=== PATIENT | male | born 1945 | race Hispanic/Latino ===

== ENCOUNTER 2021-06-04 19:00 | Emergency (ER) | payer MEDICARE, OTHER ==
[~2021-06-04] VITALS: Ht 172.7 cm; Wt 96.6 kg
[2021-06-04 19:04] VITALS: BP 158/81
[2021-06-04] MEDS ORDERED: LORAZEPAM 1 MG TABLET ONE (19:31)
[2021-06-04 19:33] LABS: APPEARANCE,URINE Clear (CLEAR); BILIRUBIN,URINE Negative (NEGATIVE); COLOR,URINE Yellow (YELLOW); GLUCOSE, URINE (UA) Negative (NEGATIVE); KETONES,URINE Trace mg/dL (NEGATIVE); LEUKOCYTE ESTERASE ,URINE Negative (NEGATIVE); NITRATE,URINE Negative (NEGATIVE); OCCULT BLOOD,URINE Negative (NEGATIVE); PH,URINE 5.5 (5.0-8.0); PROTEIN,URINE POS 2+ mg/dL (NEGATIVE)
[2021-06-04 19:37] LABS: BASOPHILS % (AUTO) 0.6 % (0.0-5.0); EOSINOPHILS % (AUTO) 2.1 % (0.0-8.0); HEMATOCRIT 29.5 % (42-54); LYMPHOCYTES % (AUTO) 24.1 % (21.0-51.0); MEAN CORPUSCULAR HEMOGLOBIN 29.6 pg (27.0-33.0); MEAN CORPUSCULAR HGB CONC 31.9 g/dL (32.0-36.0); MEAN CORPUSCULAR VOLUME 92.8 fL (79-99); MONOCYTES % (AUTO) 7.3 % (3.0-13.0); NEUTROPHILS % (AUTO) 65.8 % (40.0-77.0); PLATELET COUNT (AUTO) 212 K/uL (130-400); RED BLOOD CELL COUNT(AUTO) 3.18 MIL/uL (4.50-6.20); RED CELL DISTRIBUTION WIDTH 13.4 % (11.0-15.5); WHITE BLOOD COUNT (AUTO) 7.2 K/uL (4.8-10.8)
[2021-06-04 19:44] LABS: BACTERIA,URINE Few /HPF (None Seen); MUCUS,URINE Few LPF (None Seen); SQUAMOUS EPITHELIAL CELL,UR Rare /HPF (0-2); WBC,URINE 0-1 /HPF (0-1)
[2021-06-04 19:54] VITALS: BP 125/83
[2021-06-04 19:58] LABS: CREATININE 1.6 mg/dL (0.5-1.5); POTASSIUM 4.5 mmol/L (3.5-5.1)
[2021-06-04 20:04] LABS: ALBUMIN 3.2 g/dL (3.5-5.0); BILIRUBIN,TOTAL 0.6 mg/dL (0.2-1.0); TOTAL PROTEIN, SERUM 6.6 g/dL (6.0-8.3)
[2021-06-04] MEDS ORDERED: LORAZEPAM 1 MG TABLET PO ONE (20:30)
[2021-06-04 21:54] VITALS: BP 126/81
[2021-06-04 23:47] VITALS: BP 121/78
== END 2021-06-05 00:21 ==
LOC: EDH 19:00
DX: F43.22 Adjustment disorder with anxiety (principal); I95.9 Hypotension, unspecified; E11.9 Type 2 diabetes mellitus without complications; F03.90 Unspecified dementia, unspecified severity, without behavioral disturbance, psychotic disturbance, mood disturbance, and anxiety; Z95.0 Presence of cardiac pacemaker
CPT/HCPCS: 36415; 71045; 80053; 81001; 84484; 85025; 93005

== ENCOUNTER 2021-07-05 22:09 | Inpatient (IN) | payer OTHER ==
[~2021-07-05] VITALS: Ht 172.7 cm; Wt 98.0 kg
[2021-07-05 22:32] VITALS: BP 105/47
[2021-07-05 22:41] LABS: APPEARANCE,URINE Clear (CLEAR); BILIRUBIN,URINE Negative (NEGATIVE); COLOR,URINE Dark Yellow (YELLOW); GLUCOSE, URINE (UA) 250 mg/dL (NEGATIVE); KETONES,URINE Trace mg/dL (NEGATIVE); LEUKOCYTE ESTERASE ,URINE Negative (NEGATIVE); NITRATE,URINE Negative (NEGATIVE); OCCULT BLOOD,URINE Negative (NEGATIVE); PROTEIN,URINE POS 2+ mg/dL (NEGATIVE)
[2021-07-05 22:48] LABS: BASOPHILS % (AUTO) 0.5 % (0.0-5.0); EOSINOPHILS % (AUTO) 1.6 % (0.0-8.0); HEMATOCRIT 27.5 % (42-54); LYMPHOCYTES % (AUTO) 19.7 % (21.0-51.0); MEAN CORPUSCULAR HEMOGLOBIN 27.8 pg (27.0-33.0); MEAN CORPUSCULAR HGB CONC 30.9 g/dL (32.0-36.0); MEAN CORPUSCULAR VOLUME 89.9 fL (79-99); MONOCYTES % (AUTO) 8.1 % (3.0-13.0); NEUTROPHILS % (AUTO) 69.6 % (40.0-77.0); PLATELET COUNT (AUTO) 229 K/uL (130-400); RED BLOOD CELL COUNT(AUTO) 3.06 MIL/uL (4.50-6.20); RED CELL DISTRIBUTION WIDTH 14.7 % (11.0-15.5); WHITE BLOOD COUNT (AUTO) 6.1 K/uL (4.8-10.8)
[2021-07-05 22:50] LABS: BACTERIA,URINE None Seen /HPF (None Seen); RBC,URINE None Seen /HPF (0-1); WBC,URINE None Seen /HPF (0-1); YEAST,URINE BUDDING None Seen /HPF (None Seen)
[2021-07-05 22:51] LABS: MUCUS,URINE Rare LPF (None Seen); SQUAMOUS EPITHELIAL CELL,UR Rare /HPF (0-2)
[2021-07-05 23:03] LABS: CREATININE 2.2 mg/dL (0.5-1.5); POTASSIUM 4.4 mmol/L (3.5-5.1)
[2021-07-05 23:07] LABS: ALBUMIN 2.8 g/dL (3.5-5.0); BILIRUBIN,TOTAL 0.5 mg/dL (0.2-1.0); TOTAL PROTEIN, SERUM 6.6 g/dL (6.0-8.3)
[2021-07-05 23:18] LABS: INR 1.1 (0.85-1.15); PROTHROMBIN TIME 11.9 SEC (9.6-11.6)
[2021-07-05 23:19] LABS: PARTIAL THROMBOPLASTIN TIME 25.5 SEC (26.3-35.5)
[2021-07-05 23:25] LABS: B-TYPE NATRIURETIC PEPTIDE 1420 pg/mL (0-100)
[2021-07-06] MEDS ORDERED: FUROSEMIDE 40MG VIAL IV ONE (00:30)
[2021-07-06] MEDS ORDERED: GUAIFENESIN SUGAR-FREE 100 MG/5 ML UDCUP ONE (00:51)
[2021-07-06] MEDS ORDERED: FUROSEMIDE 40MG VIAL ONE (00:51)
[2021-07-06] MEDS ORDERED: GUAIFENESIN SUGAR-FREE 100 MG/5 ML UDCUP PO ONE (01:00)
[2021-07-06 02:04] VITALS: BP 113/76
[2021-07-06] MEDS ORDERED: TRAZODONE HCL 50 MG TAB PO PRN (02:30)
[2021-07-06] MEDS ORDERED: LORAZEPAM 2 MG/ML 1 ML VIAL ONE (02:45)
[2021-07-06] MEDS ORDERED: LORAZEPAM 2 MG/ML 1 ML VIAL IVP ONE (03:00)
[2021-07-06] MEDS ORDERED: GUAIFENESIN-CODEINE 5 ML SYRUP ONE (03:42)
[2021-07-06] MEDS ORDERED: GUAIFENESIN-CODEINE 5 ML SYRUP PO PRN (04:00)
[2021-07-06 04:30] VITALS: BP 113/76
[2021-07-06] MEDS ORDERED: 0.9%NACL 50ML 50 ML IV ONE (04:52)
[2021-07-06] MEDS ORDERED: ZOSYN 3.375GM+NS 50ML 50 ML IV SCH (05:00)
[2021-07-06 06:11] VITALS: BP 135/82
[2021-07-06 06:19] LABS: CHOLESTEROL 99 mg/dL (<200); HDL CHOLESTEROL 44 mg/dL (29-71); LDL DIRECT 45 mg/dL (0-99); TRIGLYCERIDES 64 mg/dL (30-200)
[2021-07-06 06:28] LABS: TROPONIN I 0.08 ng/mL (0.00-0.06)
[2021-07-06] MEDS ORDERED: INSULIN HUMULIN R 100 UNIT/ML 3ML SQ SCH (07:30)
[2021-07-06] MEDS ORDERED: CLOPIDOGREL 75MG TAB PO SCH (09:00)
[2021-07-06] MEDS ORDERED: CARVEDILOL 6.25 MG TABLET PO SCH (09:00)
[2021-07-06] MEDS ORDERED: BUSPIRONE HCL 5 MG TABLET PO SCH (09:00)
[2021-07-06] MEDS ORDERED: HEPARIN 5,000 UNIT VIAL SQ SCH (09:00)
[2021-07-06] MEDS ORDERED: FUROSEMIDE 40MG VIAL IVP SCH (09:00)
[2021-07-06] MEDS ORDERED: FAMOTIDINE 20MG TAB PO SCH (09:00)
[2021-07-06] MEDS ORDERED: SUB PER P&T FOR ASTHMA OR COPD RECOMMENDATION IH SCH (09:00)
[2021-07-06] MEDS ORDERED: LISINOPRIL 10 MG TABLET PO SCH (09:00)
[2021-07-06] MEDS ORDERED: ISOSORBIDE MONO 30MG SR TAB PO SCH (09:00)
[2021-07-06] MEDS ORDERED: HYDRALAZINE 25MG TABLET PO SCH (09:00)
[2021-07-06] MEDS ORDERED: ATORVASTATIN 40 MG TABLET PO SCH (21:00)
[2021-07-06] MEDS ORDERED: INSULIN GLARGINE 100 UNITS/ML 10 ML VIAL SQ SCH (21:00)
[2021-07-06] MEDS ORDERED: MIRTAZAPINE 15 MG TABLET PO SCH (21:00)
== END 2021-07-06 08:10 | disposition left against medical advice (07) | DRG 292 ==
LOC: EDH 22:35 → EDHIP 07-06 02:38
PROVIDERS: ADMIT Internal Medicine; ATTEND Internal Medicine
DX: I13.0 Hypertensive heart and chronic kidney disease with heart failure and stage 1 through stage 4 chronic kidney disease, or unspecified chronic kidney disease (principal); L03.115 Cellulitis of right lower limb; N17.9 Acute kidney failure, unspecified; K21.9 Gastro-esophageal reflux disease without esophagitis; F32.9 Major depressive disorder, single episode, unspecified; I50.9 Heart failure, unspecified; J44.9 Chronic obstructive pulmonary disease, unspecified; F03.90 Unspecified dementia, unspecified severity, without behavioral disturbance, psychotic disturbance, mood disturbance, and anxiety; E78.5 Hyperlipidemia, unspecified; N40.0 Benign prostatic hyperplasia without lower urinary tract symptoms; E11.621 Type 2 diabetes mellitus with foot ulcer; N18.9 Chronic kidney disease, unspecified; E11.22 Type 2 diabetes mellitus with diabetic chronic kidney disease; L97.519 Non-pressure chronic ulcer of other part of right foot with unspecified severity; Z20.822 Contact with and (suspected) exposure to COVID-19; Z87.891 Personal history of nicotine dependence; Z95.810 Presence of automatic (implantable) cardiac defibrillator
CPT/HCPCS: 36415; 71045; 73620; 80053; 80061; 81001; 82550; 83036; 83874; 83880; 84484; 85025; 85378; 85610; 85730; 87635; 93005; 93970; C9803; G0378; J1940; J2060; J2543

== ENCOUNTER 2021-07-19 22:19 | Inpatient (IN) | payer OTHER ==
[~2021-07-19] VITALS: Ht 172.7 cm; Wt 103.4 kg
[2021-07-19 22:43] VITALS: BP 104/59
[2021-07-19 23:24] LABS: BASOPHILS % (AUTO) 0.7 % (0.0-5.0); EOSINOPHILS % (AUTO) 5.1 % (0.0-8.0); HEMATOCRIT 28.8 % (42-54); LYMPHOCYTES % (AUTO) 16.4 % (21.0-51.0); MEAN CORPUSCULAR HEMOGLOBIN 26.4 pg (27.0-33.0); MEAN CORPUSCULAR HGB CONC 30.6 g/dL (32.0-36.0); MEAN CORPUSCULAR VOLUME 86.5 fL (79-99); MONOCYTES % (AUTO) 9.2 % (3.0-13.0); NEUTROPHILS % (AUTO) 68.3 % (40.0-77.0); PLATELET COUNT (AUTO) 252 K/uL (130-400); RED BLOOD CELL COUNT(AUTO) 3.33 MIL/uL (4.50-6.20); RED CELL DISTRIBUTION WIDTH 15.2 % (11.0-15.5); WHITE BLOOD COUNT (AUTO) 6.9 K/uL (4.8-10.8)
[2021-07-19 23:25] LABS: APPEARANCE,URINE Clear (CLEAR); BILIRUBIN,URINE Negative (NEGATIVE); COLOR,URINE Yellow (YELLOW); GLUCOSE, URINE (UA) Negative (NEGATIVE); KETONES,URINE Negative (NEGATIVE); LEUKOCYTE ESTERASE ,URINE Negative (NEGATIVE); NITRATE,URINE Negative (NEGATIVE); OCCULT BLOOD,URINE Negative (NEGATIVE); PROTEIN,URINE Negative (NEGATIVE)
[2021-07-19] MEDS ORDERED: CEFTRIAXONE 1G VIAL IVP ONE (23:30)
[2021-07-19 23:33] LABS: INR 1.12 (0.85-1.15); PROTHROMBIN TIME 12.1 SEC (9.6-11.6)
[2021-07-19 23:40] LABS: ALBUMIN 2.6 g/dL (3.5-5.0); BILIRUBIN,TOTAL 0.4 mg/dL (0.2-1.0); CREATININE 2.8 mg/dL (0.5-1.5); TOTAL PROTEIN, SERUM 6.2 g/dL (6.0-8.3)
[2021-07-19 23:43] LABS: B-TYPE NATRIURETIC PEPTIDE 1450 pg/mL (0-100)
[2021-07-20 00:21] VITALS: BP 125/74
[2021-07-20] MEDS ORDERED: ALPRAZOLAM 0.25 MG TABLET ONE (00:42)
[2021-07-20] MEDS ORDERED: ALPRAZOLAM 0.25 MG TABLET PO ONE (01:00)
[2021-07-20] MEDS ORDERED: FUROSEMIDE 40MG VIAL IV ONE (01:00)
[2021-07-20] MEDS ORDERED: ALBUTEROL 0.083% 2.5 MG/3 ML INH IH ONE (01:00)
[2021-07-20] MEDS ORDERED: INSULIN HUMULIN R 100 UNIT/ML 3ML SQ SCH ×4 (01:30→11:30)
[2021-07-20] MEDS ORDERED: DEXTROSE 50%-WATER 50 ML DISP.SYRIN IV PRN (01:30)
[2021-07-20] MEDS ORDERED: ONDANSETRON 4MG INJ IV PRN (01:30)
[2021-07-20] MEDS ORDERED: NITROGLYCERIN 0.4 MG SL TAB SL PRN (01:30)
[2021-07-20] MEDS ORDERED: GLUCAGON 1MG KIT 1 MG ML IM PRN (01:30)
[2021-07-20] MEDS ORDERED: SOLU-MEDROL 125MG VIAL IVP ONE (01:30)
[2021-07-20] MEDS ORDERED: ACETAMINOPHEN 325 MG TAB PO PRN ×2 (01:30)
[2021-07-20] MEDS ORDERED: ALBUTEROL INHALER 90MCG/INH IH PRN (01:30)
[2021-07-20] MEDS ORDERED: LEVOFLOXACIN 500 MG/D5W 100 ML 100 ML IV SCH (02:00)
[2021-07-20 02:04] LABS: CRP QUANTITATIVE 39.5 mg/L (0.00-9.0)
[2021-07-20 02:08] LABS: CHOLESTEROL 74 mg/dL (<200); HDL CHOLESTEROL 31 mg/dL (29-71); LDL DIRECT 36 mg/dL (0-99); TRIGLYCERIDES 81 mg/dL (30-200)
[2021-07-20 02:39] LABS: % IRON SATURATION 8.3 % (30-44)
[2021-07-20] MEDS ORDERED: CALCIUM GLUC 1GM VIAL IV ONE ×2 (03:06→03:15)
[2021-07-20] MEDS: CALCIUM GLUC IV SCH ×2 (03:19→03:23)
[2021-07-20] MEDS: [UNRECOGNIZED DRUG - OTHER] IV SCH ×2 (03:19→03:23)
[2021-07-20 04:55] LABS: AMPHET/METH SCREEN,URINE NEGATIVE (NEGATIVE); BARBITURATE SCREEN, URINE NEGATIVE (NEGATIVE); BENZODIAZEPINES SCREEN,URINE NEGATIVE (NEGATIVE); CANNABINOID SCREEN,URINE NEGATIVE (NEGATIVE); COCAINE SCREEN,URINE POSITIVE (NEGATIVE); OPIATE SCREEN,URINE NEGATIVE (NEGATIVE); PHENCYCLIDINE SCREEN,URINE NEGATIVE (NEGATIVE)
[2021-07-20 06:03] LABS: HEMOGLOBIN A1C 8.4 % (4.0-6.0)
[2021-07-20 07:30] VITALS: BP 139/81
[2021-07-20] MEDS ORDERED: FUROSEMIDE 40MG VIAL IV SCH (08:00)
[2021-07-20] MEDS ORDERED: FAMOTIDINE 20MG TAB PO SCH (09:00)
[2021-07-20] MEDS ORDERED: HEPARIN 5,000 UNIT VIAL SQ SCH (09:00)
[2021-07-20] MEDS ORDERED: SOLU-MEDROL 40MG VIAL IVP SCH (10:00)
[2021-07-20] MEDS ORDERED: 0.9%NACL 1000ML 1,000 ML IV SCH (11:00)
[2021-07-20] MEDS ORDERED: BUMETANIDE 2.5MG/10ML VIAL IV SCH (11:00)
[2021-07-20] MEDS ORDERED: TRAZ-185 PO (12:00)
[2021-07-20] MEDS ORDERED: ATOR40TA69 PO (12:00)
[2021-07-20] MEDS ORDERED: IPRA3AMP24 IH (12:00)
[2021-07-20] MEDS ORDERED: HYDR-4153 PO (12:00)
[2021-07-20] MEDS ORDERED: CARV6.25 PO (12:00)
[2021-07-20] MEDS ORDERED: BUSP15TA3 PO (12:00)
[2021-07-20] MEDS ORDERED: FOLI1 PO (12:00)
[2021-07-20] MEDS ORDERED: THIA100T78 PO (12:00)
[2021-07-20] MEDS ORDERED: TAMS-1 PO (12:00)
[2021-07-20] MEDS ORDERED: CYAN5POW MC (12:00)
[2021-07-20] MEDS ORDERED: FINA5TAB41 PO (12:00)
[2021-07-20] MEDS ORDERED: CHOL1CRY2 MC (12:00)
[2021-07-20] MEDS ORDERED: POTA20TA82 PO (12:00)
[2021-07-20] MEDS ORDERED: OMEP40CA21 PO (12:00)
[2021-07-20] MEDS ORDERED: INSLAN SQ (12:00)
[2021-07-20] MEDS ORDERED: ISOS30TA92 PO (12:00)
[2021-07-20] MEDS ORDERED: CLOP75TA14 PO (12:00)
[2021-07-20] MEDS ORDERED: MIRT-72 PO (12:00)
[2021-07-20] MEDS ORDERED: SYMB8060 IH (12:00)
[2021-07-20] MEDS ORDERED: INSULIN GLARGINE 100 UNITS/ML 10 ML VIAL SQ SCH (21:00)
== END 2021-07-20 11:13 | disposition left against medical advice (07) | DRG 683 ==
LOC: EDH 22:19 → EDHIP 07-20 01:21
PROVIDERS: ADMIT Internal Medicine; ATTEND Internal Medicine
DX: N17.9 Acute kidney failure, unspecified (principal); I13.0 Hypertensive heart and chronic kidney disease with heart failure and stage 1 through stage 4 chronic kidney disease, or unspecified chronic kidney disease; M62.82 Rhabdomyolysis; J44.1 Chronic obstructive pulmonary disease with (acute) exacerbation; D50.9 Iron deficiency anemia, unspecified; K21.9 Gastro-esophageal reflux disease without esophagitis; F32.9 Major depressive disorder, single episode, unspecified; N18.30 Chronic kidney disease, stage 3 unspecified; I50.9 Heart failure, unspecified; E11.22 Type 2 diabetes mellitus with diabetic chronic kidney disease; Z20.822 Contact with and (suspected) exposure to COVID-19; E78.5 Hyperlipidemia, unspecified; N40.0 Benign prostatic hyperplasia without lower urinary tract symptoms; E66.9 Obesity, unspecified; E83.51 Hypocalcemia; E11.65 Type 2 diabetes mellitus with hyperglycemia; Z68.34 Body mass index [BMI] 34.0-34.9, adult; Z79.4 Long term (current) use of insulin; Z87.891 Personal history of nicotine dependence; Z95.810 Presence of automatic (implantable) cardiac defibrillator
CPT/HCPCS: 36415; 71045; 80053; 80061; 80305; 81003; 82330; 82550; 82728; 82948; 83036; 83540; 83550; 83605; 83874; 83880; 84145; 84484; 85025; 85610; 86140; 87040; 87635; 87641; 93005; 94640; C9803; G0378; J0610; J0696; J1644; J1815; J1940; J1956; J2930

== ENCOUNTER → 2022-05-13 | Outpatient (CLI) | payer OTHER ==
[~2022-05-13] MED LIST: ATOR40TA69 PO; BUSP15TA3 PO; CARV6.25 PO; CHOL1CRY2 MC; CLOP75TA14 PO; CYAN5POW MC; FINA5TAB41 PO; FOLI1 PO; HYDR-4153 PO; INSLAN SQ; IPRA3AMP24 IH; ISOS30TA92 PO; LIDOCAINE HCL 4% LTA SOL 4 ML VIAL TP ONE; MIRT-72 PO; OMEP40CA21 PO; POTA-202 PO; SYMB8060 IH; TAMS-1 PO; THIA100T78 PO; TRAZ-185 PO
== END | disposition home or self-care (01) ==
LOC: WHH 08:57
PROVIDERS: ATTEND Family Medicine
DX: S81.801A Unspecified open wound, right lower leg, initial encounter (principal); S51.001A Unspecified open wound of right elbow, initial encounter; S51.002A Unspecified open wound of left elbow, initial encounter; L89.312 Pressure ulcer of right buttock, stage 2; E11.22 Type 2 diabetes mellitus with diabetic chronic kidney disease; I13.0 Hypertensive heart and chronic kidney disease with heart failure and stage 1 through stage 4 chronic kidney disease, or unspecified chronic kidney disease; N18.30 Chronic kidney disease, stage 3 unspecified; I50.9 Heart failure, unspecified; E78.5 Hyperlipidemia, unspecified; N40.0 Benign prostatic hyperplasia without lower urinary tract symptoms; J44.9 Chronic obstructive pulmonary disease, unspecified; I25.10 Atherosclerotic heart disease of native coronary artery without angina pectoris; K21.9 Gastro-esophageal reflux disease without esophagitis; F41.0 Panic disorder [episodic paroxysmal anxiety]; F32.9 Major depressive disorder, single episode, unspecified; F03.90 Unspecified dementia, unspecified severity, without behavioral disturbance, psychotic disturbance, mood disturbance, and anxiety; E66.9 Obesity, unspecified; Z68.29 Body mass index [BMI] 29.0-29.9, adult; Z90.49 Acquired absence of other specified parts of digestive tract; Z87.891 Personal history of nicotine dependence; Z95.810 Presence of automatic (implantable) cardiac defibrillator; Z79.4 Long term (current) use of insulin; X58.XXXA Exposure to other specified factors, initial encounter; Y93.89 Activity, other specified; Y92.89 Other specified places as the place of occurrence of the external cause; Y99.8 Other external cause status
CPT/HCPCS: 11042; A4450

== ENCOUNTER → 2022-05-20 | Outpatient (CLI) | payer OTHER | END | disposition home or self-care (01) | LOC: MERGE 08:11 → WHH 08:11 → UNMERGE 08:11 | PROVIDERS: ATTEND Family Medicine | DX: S81.801D Unspecified open wound, right lower leg, subsequent encounter (principal); S51.001D Unspecified open wound of right elbow, subsequent encounter; S51.002D Unspecified open wound of left elbow, subsequent encounter; L89.312 Pressure ulcer of right buttock, stage 2; E11.22 Type 2 diabetes mellitus with diabetic chronic kidney disease; I13.0 Hypertensive heart and chronic kidney disease with heart failure and stage 1 through stage 4 chronic kidney disease, or unspecified chronic kidney disease; N18.30 Chronic kidney disease, stage 3 unspecified; I50.9 Heart failure, unspecified; E78.5 Hyperlipidemia, unspecified; N40.0 Benign prostatic hyperplasia without lower urinary tract symptoms; J44.9 Chronic obstructive pulmonary disease, unspecified; I25.10 Atherosclerotic heart disease of native coronary artery without angina pectoris; K21.9 Gastro-esophageal reflux disease without esophagitis; F41.0 Panic disorder [episodic paroxysmal anxiety]; F32.9 Major depressive disorder, single episode, unspecified; F03.90 Unspecified dementia, unspecified severity, without behavioral disturbance, psychotic disturbance, mood disturbance, and anxiety; E66.9 Obesity, unspecified; Z68.29 Body mass index [BMI] 29.0-29.9, adult; Z90.49 Acquired absence of other specified parts of digestive tract; Z87.891 Personal history of nicotine dependence; Z95.810 Presence of automatic (implantable) cardiac defibrillator; Z79.4 Long term (current) use of insulin; W19.XXXD Unspecified fall, subsequent encounter | CPT/HCPCS: 11042 ==

== ENCOUNTER → 2022-05-27 | Outpatient (CLI) | payer OTHER ==
[~2022-05-27] MED LIST changes: +ACET325T51 PO; +ATOR40TA71 PO; +BACL10TA PO; +BALS60OI TP; +BENZ200C53 PO; +BUSP5TAB3 PO; +CARB1DRO40 OP; +CARV3.1262 PO; +CHOL100046 PO; +CYAN500T46 PO; +D-ME118S47 PO; +FAMO-136 PO; +FERR-72 PO; +FLUT1BLS15 IH; +FURO20I IM; +FURO40TA7 PO; +GUAI5SYR4 PO; +HYDR-3422 PO; +INSU100V52 SQ; -LIDOCAINE HCL 4% LTA SOL 4 ML VIAL TP ONE; +LOSA25TA41 PO; +MAGN64TA7 PO; +MIRT7.5T11 PO; +PETR113O TP; +SPIR25TA6 PO; +THIA500T3 PO; +[UNRECOGNIZED DRUG - OTHER] PO
== END | disposition home or self-care (01) ==
LOC: UNMERGE 08:00 → MERGE 08:00 → WHH 08:21
PROVIDERS: ATTEND Family Medicine
DX: Z48.01 Encounter for change or removal of surgical wound dressing (principal); I10 Essential (primary) hypertension; E11.9 Type 2 diabetes mellitus without complications
CPT/HCPCS: 82948

== ENCOUNTER 2022-05-28 17:36 | Inpatient (IN) | payer OTHER ==
[~2022-05-28] VITALS: Ht 172.7 cm; Wt 95.5 kg
[~2022-05-28 17:36] MED LIST changes: -ACET325T51 PO; -ATOR40TA71 PO; -BACL10TA PO; -BALS60OI TP; -BENZ200C53 PO; -BUSP5TAB3 PO; -CARB1DRO40 OP; -CARV3.1262 PO; -CHOL100046 PO; -CYAN500T46 PO; -FAMO-136 PO; -FERR-72 PO; -FLUT1BLS15 IH; -FURO20I IM; -FURO40TA7 PO; -GUAI5SYR4 PO; -HYDR-3422 PO; -INSU100V52 SQ; -LOSA25TA41 PO; -MAGN64TA7 PO; -MIRT7.5T11 PO; -PETR113O TP; -SPIR25TA6 PO; -THIA500T3 PO; -[UNRECOGNIZED DRUG - OTHER] PO
[2022-05-28 18:29] LABS: BASOPHILS % (AUTO) 0.9 % (0.0-5.0); HEMATOCRIT 35.1 % (42-54); LYMPHOCYTES % (AUTO) 8.7 % (21.0-51.0); MEAN CORPUSCULAR HEMOGLOBIN 28.9 pg (27.0-33.0); MEAN CORPUSCULAR HGB CONC 31.3 g/dL (32.0-36.0); MEAN CORPUSCULAR VOLUME 92.1 fL (79-99); MONOCYTES % (AUTO) 8.4 % (3.0-13.0); NEUTROPHILS % (AUTO) 78.7 % (40.0-77.0); PLATELET COUNT (AUTO) 201 K/uL (130-400); RED BLOOD CELL COUNT(AUTO) 3.81 MIL/uL (4.50-6.20); RED CELL DISTRIBUTION WIDTH 15.4 % (11.0-15.5)
[2022-05-28 18:43] LABS: CREATININE 2.2 mg/dL (0.5-1.5); POTASSIUM 4.5 mmol/L (3.5-5.1)
[2022-05-28 18:50] LABS: ALBUMIN 2.3 g/dL (3.5-5.0); CRP QUANTITATIVE 40.3 mg/L (0.00-9.0); TOTAL PROTEIN, SERUM 6.8 g/dL (6.0-8.3)
[2022-05-28 19:19] LABS: APPEARANCE,URINE CLEAR (CLEAR); BILIRUBIN,URINE NEGATIVE (NEGATIVE); COLOR,URINE YELLOW (YELLOW); GLUCOSE, URINE (UA) NEGATIVE (NEGATIVE); KETONES,URINE NEGATIVE (NEGATIVE); LEUKOCYTE ESTERASE ,URINE NEGATIVE (NEGATIVE); NITRATE,URINE NEGATIVE (NEGATIVE); OCCULT BLOOD,URINE NEGATIVE (NEGATIVE); PROTEIN,URINE NEGATIVE (NEGATIVE); UROBILINOGEN,URINE 0.2 mg/dL (0.2-1.0)
[2022-05-28 19:34] LABS: B-TYPE NATRIURETIC PEPTIDE 1120 pg/mL (0-100)
[2022-05-28] MEDS ORDERED: FUROSEMIDE 40MG VIAL IV ONE (20:00)
[2022-05-28] MEDS ORDERED: ACETAMINOPHEN 325 MG TAB PO PRN (20:30)
[2022-05-28] MEDS ORDERED: MAGNESIUM 2GM PREMIX 50ML 50 ML IV PRN (20:30)
[2022-05-28] MEDS ORDERED: VANCOMYCIN PROTOCOL PER PHARMACY IV PRN (20:30)
[2022-05-28] MEDS ORDERED: ONDANSETRON 4MG INJ IV PRN (20:30)
[2022-05-28] MEDS ORDERED: HYDROMORPHONE 0.5 MG SYG (0.5MG/0.5ML) IV PRN (20:30)
[2022-05-28] MEDS ORDERED: POTASSIUM CHLORIDE 10MEQ/100ML 100 ML IV PRN (20:30)
[2022-05-28] MEDS ORDERED: POTASSIUM CHLORIDE 10% ELIXIR 20 MEQ/15 ML UDCUP PO PRN (20:30)
[2022-05-28] MEDS ORDERED: KCL 20 MEQ ERTAB PO PRN (20:30)
[2022-05-28] MEDS ORDERED: LIDOCAINE HCL-MPF 1% 2ML VIAL IV PRN (20:30)
[2022-05-28] MEDS: CEFEPIME HCL 2 GM VIAL IVP SCH (20:30)
[2022-05-28] MEDS: HEPARIN 5,000 UNIT VIAL SQ SCH (21:00)
[2022-05-28] MEDS: INSULIN HUMULIN R 100 UNIT/ML 3ML SQ SCH (21:00)
[2022-05-28] MEDS ORDERED: VANCOMYCIN 1G/250ML KIT 250 ML IV SCH (21:00)
[2022-05-28] MEDS: FUROSEMIDE 40MG VIAL IVP SCH (21:00)
[2022-05-29 00:30] VITALS: BP 114/75
[2022-05-29] MEDS ORDERED: LORAZEPAM 2 MG/ML 1 ML VIAL IVP ONE ×2 (02:00→22:30)
[2022-05-29] MEDS ORDERED: LORAZEPAM 2 MG/ML 1 ML VIAL ONE (02:04)
[2022-05-29 03:30] VITALS: BP 126/75
[2022-05-29 05:42] LABS: BASOPHILS % (AUTO) 0.5 % (0.0-5.0); HEMATOCRIT 36.8 % (42-54); LYMPHOCYTES % (AUTO) 8.7 % (21.0-51.0); MEAN CORPUSCULAR HGB CONC 31.3 g/dL (32.0-36.0); MEAN CORPUSCULAR VOLUME 92.9 fL (79-99); MONOCYTES % (AUTO) 7.7 % (3.0-13.0); NEUTROPHILS % (AUTO) 79.8 % (40.0-77.0); PLATELET COUNT (AUTO) 200 K/uL (130-400); RED BLOOD CELL COUNT(AUTO) 3.96 MIL/uL (4.50-6.20); RED CELL DISTRIBUTION WIDTH 15.5 % (11.0-15.5); WHITE BLOOD COUNT (AUTO) 8.6 K/uL (4.8-10.8)
[2022-05-29 06:04] LABS: B-TYPE NATRIURETIC PEPTIDE 1280 pg/mL (0-100)
[2022-05-29 06:05] LABS: MAGNESIUM 2.1 mg/dL (1.80-2.40); POTASSIUM 4.2 mmol/L (3.5-5.1)
[2022-05-29 06:07] LABS: HEMOGLOBIN A1C 7.1 % (4.0-6.0)
[2022-05-29] MEDS: INSULIN HUMULIN R 100 UNIT/ML 3ML SQ SCH ×4 (06:29→21:00)
[2022-05-29] MEDS ORDERED: ACET325T51 PO (07:26)
[2022-05-29] MEDS ORDERED: BACL10TA PO (07:30)
[2022-05-29] MEDS ORDERED: ATOR40TA71 PO (07:30)
[2022-05-29] MEDS ORDERED: BENZ200C53 PO (07:30)
[2022-05-29] MEDS ORDERED: HYDR-3422 PO (07:42)
[2022-05-29] MEDS ORDERED: FOLI1 PO (07:42)
[2022-05-29] MEDS ORDERED: ISOS30TA92 PO (07:42)
[2022-05-29] MEDS ORDERED: CARB1DRO40 OP (07:42)
[2022-05-29] MEDS ORDERED: FINA5TAB41 PO (07:42)
[2022-05-29] MEDS ORDERED: INSU100V52 SQ (07:42)
[2022-05-29] MEDS ORDERED: FERR-72 PO (07:42)
[2022-05-29] MEDS ORDERED: BUSP5TAB3 PO (07:42)
[2022-05-29] MEDS ORDERED: FLUT1BLS15 IH (07:52)
[2022-05-29] MEDS ORDERED: CYAN500T46 PO (07:52)
[2022-05-29] MEDS ORDERED: FURO40TA7 PO (07:52)
[2022-05-29] MEDS ORDERED: PETR113O TP (07:52)
[2022-05-29] MEDS ORDERED: LOSA25TA41 PO (07:52)
[2022-05-29] MEDS ORDERED: CHOL100046 PO (07:52)
[2022-05-29] MEDS ORDERED: THIA500T3 PO (07:52)
[2022-05-29] MEDS ORDERED: BALS60OI TP (07:52)
[2022-05-29] MEDS ORDERED: MIRT7.5T11 PO (07:52)
[2022-05-29] MEDS ORDERED: FURO20I IM (07:52)
[2022-05-29] MEDS ORDERED: TAMS-1 PO (07:52)
[2022-05-29 08:00] VITALS: BP 130/75
[2022-05-29] MEDS: VANCOMYCIN 1.25 GM/250 ML BAG 250 ML IV SCH (09:00)
[2022-05-29] MEDS: FAMOTIDINE 20MG TAB PO SCH (09:00)
[2022-05-29] MEDS: FUROSEMIDE 40MG VIAL IVP SCH ×2 (09:00→19:39)
[2022-05-29] MEDS: HEPARIN 5,000 UNIT VIAL SQ SCH ×2 (09:01→19:39)
[2022-05-29 11:34] VITALS: BP 146/79
[2022-05-29] MEDS ORDERED: GUAIFENESIN-CODEINE 5 ML SYRUP ONE (14:53)
[2022-05-29 16:00] VITALS: BP 122/74
[2022-05-29 19:09] VITALS: BP 141/99
[2022-05-29] MEDS: CEFEPIME HCL 2 GM VIAL IVP SCH (19:38)
[2022-05-29] MEDS: GUAIFENESIN-CODEINE 5 ML SYRUP PO PRN (20:55)
[2022-05-29] MEDS: HYDROCODONE/ACETAMINOPHEN 5/325 MG TAB PO PRN (20:56)
[2022-05-29] MEDS: ALBUTEROL INHALER 90MCG/INH IH PRN (22:48)
[2022-05-30 00:20] VITALS: BP_SYST 110; BP_SYST 117; BP_DIAS 71; BP_DIAS 87
[2022-05-30 04:00] VITALS: BP 131/68
[2022-05-30] MEDS: ALBUTEROL INHALER 90MCG/INH IH PRN (05:46)
[2022-05-30] MEDS: INSULIN HUMULIN R 100 UNIT/ML 3ML SQ SCH ×4 (06:30→20:56)
[2022-05-30 08:00] VITALS: BP 124/73
[2022-05-30] MEDS: VANCOMYCIN 1.25 GM/250 ML BAG 250 ML IV SCH (08:15)
[2022-05-30] MEDS: FUROSEMIDE 40MG VIAL IVP SCH ×2 (08:15→21:03)
[2022-05-30] MEDS: FAMOTIDINE 20MG TAB PO SCH (08:19)
[2022-05-30] MEDS: HEPARIN 5,000 UNIT VIAL SQ SCH ×2 (08:21→21:14)
[2022-05-30 11:40] VITALS: BP 117/80
[2022-05-30 16:00] VITALS: BP 126/69
[2022-05-30 19:09] VITALS: BP 110/61
[2022-05-30] MEDS: CEFEPIME HCL 2 GM VIAL IVP SCH (21:04)
[2022-05-30] MEDS: GUAIFENESIN-CODEINE 5 ML SYRUP PO PRN (21:04)
[2022-05-30] MEDS: HYDROCODONE/ACETAMINOPHEN 5/325 MG TAB PO PRN (21:05)
[2022-05-31] VITALS (8 sets, daily range): BP systolic 94–134; BP diastolic 53–84
[2022-05-31] MEDS: HYDROCODONE/ACETAMINOPHEN 5/325 MG TAB PO PRN ×3 (02:07→13:43)
[2022-05-31] MEDS: INSULIN HUMULIN R 100 UNIT/ML 3ML SQ SCH ×4 (06:03→21:00)
[2022-05-31 06:49] LABS: CREATININE 1.5 mg/dL (0.5-1.5); POTASSIUM 3.8 mmol/L (3.5-5.1)
[2022-05-31] MEDS: VANCOMYCIN 1.25 GM/250 ML BAG 250 ML IV SCH (08:33)
[2022-05-31] MEDS: FUROSEMIDE 20MG VIAL IVP SCH ×2 (08:34→20:56)
[2022-05-31] MEDS: HEPARIN 5,000 UNIT VIAL SQ SCH ×2 (08:35→20:57)
[2022-05-31] MEDS: FAMOTIDINE 20MG TAB PO SCH (08:35)
[2022-05-31] MEDS: CEFEPIME HCL 2 GM VIAL IVP SCH (20:56)
[2022-05-31] MEDS ORDERED: HYDROXYZINE 25 MG TABLET PO ONE (22:30)
[2022-05-31] MEDS: CARVEDILOL 3.125 MG TABLET PO SCH (22:32)
[2022-05-31] MEDS ORDERED: COLCHICINE 0.6 MG TABLET ONE (22:34)
[2022-05-31] MEDS ORDERED: MIRTAZAPINE 15 MG TABLET ONE (22:36)
[2022-05-31] MEDS ORDERED: HYDROXYZINE 25 MG TABLET ONE (22:37)
[2022-05-31] MEDS: MIRTAZAPINE 15 MG TABLET PO SCH (22:42)
[2022-06-01] VITALS (7 sets, daily range): BP systolic 91–132; BP diastolic 59–70
[2022-06-01 04:18] LABS: BASOPHILS % (AUTO) 0.5 % (0.0-5.0); EOSINOPHILS % (AUTO) 5.3 % (0.0-8.0); HEMATOCRIT 34.4 % (42-54); LYMPHOCYTES % (AUTO) 7.9 % (21.0-51.0); MEAN CORPUSCULAR HEMOGLOBIN 28.6 pg (27.0-33.0); MEAN CORPUSCULAR HGB CONC 30.8 g/dL (32.0-36.0); MEAN CORPUSCULAR VOLUME 92.7 fL (79-99); MONOCYTES % (AUTO) 7.7 % (3.0-13.0); NEUTROPHILS % (AUTO) 78.3 % (40.0-77.0); PLATELET COUNT (AUTO) 167 K/uL (130-400); RED BLOOD CELL COUNT(AUTO) 3.71 MIL/uL (4.50-6.20); RED CELL DISTRIBUTION WIDTH 15.7 % (11.0-15.5); WHITE BLOOD COUNT (AUTO) 6.2 K/uL (4.8-10.8)
[2022-06-01 04:32] LABS: % IRON SATURATION 12.7 % (30-44)
[2022-06-01 04:51] LABS: CARBON DIOXIDE 27 mmol/L (21-32); CHLORIDE 108 mmol/L (101-111); CREATININE 1.4 mg/dL (0.5-1.5); GLOMERULAR FILTR. RATE CALC 52 mL/min (>60); GLUCOSE,RANDOM 162 mg/dL (70-105); PHOSPHORUS 3.2 mg/dL (2.5-4.9); POTASSIUM 3.8 mmol/L (3.5-5.1); SODIUM SERUM 143 mmol/L (136-145); THYROID STIMULATING HORMONE 4.53 uIU/mL (0.36-3.74); UREA NITROGEN, BLOOD 44 mg/dL (7-18)
[2022-06-01 04:53] LABS: B-TYPE NATRIURETIC PEPTIDE 1640 pg/mL (0-100)
[2022-06-01] MEDS: INSULIN HUMULIN R 100 UNIT/ML 3ML SQ SCH ×4 (06:07→21:00)
[2022-06-01] MEDS: TRELEGY ELLIPTA IH SCH (09:00)
[2022-06-01] MEDS: [UNRECOGNIZED DRUG - OTHER] IH SCH (09:00)
[2022-06-01] MEDS: THIAMINE HCL 100 MG TABLET PO SCH (09:13)
[2022-06-01] MEDS: VANCOMYCIN 1.25 GM/250 ML BAG 250 ML IV SCH (09:13)
[2022-06-01] MEDS: BUSPIRONE HCL 5 MG TABLET PO SCH ×2 (09:13→21:16)
[2022-06-01] MEDS: FAMOTIDINE 20MG TAB PO SCH (09:13)
[2022-06-01] MEDS: FUROSEMIDE 40 MG TABLET PO SCH ×2 (09:13→16:07)
[2022-06-01] MEDS: CARVEDILOL 3.125 MG TABLET PO SCH ×2 (09:14→21:00)
[2022-06-01] MEDS ORDERED: SPIRONOLACTONE 25 MG TAB PO SCH (09:30)
[2022-06-01] MEDS: HEPARIN 5,000 UNIT VIAL SQ SCH ×2 (09:34→21:41)
[2022-06-01] MEDS ORDERED: MAGNESIUM CHLORIDE 70 MG TABLET.SA PO SCH (10:00)
[2022-06-01] MEDS ORDERED: EPOETIN ALFA-EPBX (NON-ESRD) 10,000 UNIT/ML VIAL SQ SCH (10:00)
[2022-06-01] MEDS: SPIRONOLACTONE 25 MG TAB PO SCH (10:49)
[2022-06-01] MEDS: MAGNESIUM CHLORIDE 70 MG TABLET.SA PO SCH (10:49)
[2022-06-01] MEDS: GUAIFENESIN-CODEINE 5 ML SYRUP PO PRN (14:02)
[2022-06-01] MEDS: HYDROXYZINE 25 MG TABLET PO SCH (21:13)
[2022-06-01] MEDS: MIRTAZAPINE 15 MG TABLET PO SCH (21:14)
[2022-06-01] MEDS: FINASTERIDE 5 MG TABLET PO SCH (21:16)
[2022-06-01] MEDS: CEFEPIME HCL 2 GM VIAL IVP SCH (21:16)
[2022-06-01] MEDS: ATORVASTATIN 40 MG TABLET PO SCH (21:16)
[2022-06-01] MEDS: TAMSULOSIN HCL 0.4 MG CAP.ER.24H PO SCH (21:16)
[2022-06-02] VITALS (16 sets, daily range): BP systolic 97–132; BP diastolic 44–82
[2022-06-02 05:01] LABS: BASOPHILS % (AUTO) 0.6 % (0.0-5.0); HEMATOCRIT 33.9 % (42-54); LYMPHOCYTES % (AUTO) 14.4 % (21.0-51.0); MEAN CORPUSCULAR HGB CONC 30.7 g/dL (32.0-36.0); MEAN CORPUSCULAR VOLUME 94.4 fL (79-99); MONOCYTES % (AUTO) 8.9 % (3.0-13.0); NEUTROPHILS % (AUTO) 68.5 % (40.0-77.0); PLATELET COUNT (AUTO) 169 K/uL (130-400); RED BLOOD CELL COUNT(AUTO) 3.59 MIL/uL (4.50-6.20); RED CELL DISTRIBUTION WIDTH 15.9 % (11.0-15.5); WHITE BLOOD COUNT (AUTO) 5.3 K/uL (4.8-10.8)
[2022-06-02 05:13] LABS: CREATININE 1.7 mg/dL (0.5-1.5); POTASSIUM 4.5 mmol/L (3.5-5.1)
[2022-06-02] MEDS: INSULIN HUMULIN R 100 UNIT/ML 3ML SQ SCH ×4 (06:19→20:44)
[2022-06-02] MEDS: [UNRECOGNIZED DRUG - OTHER] IH SCH (09:00)
[2022-06-02] MEDS: HEPARIN 5,000 UNIT VIAL SQ SCH ×2 (09:00→20:46)
[2022-06-02] MEDS: TRELEGY ELLIPTA IH SCH (09:00)
[2022-06-02] MEDS: VANCOMYCIN 1.25 GM/250 ML BAG 250 ML IV SCH (09:47)
[2022-06-02] MEDS: SPIRONOLACTONE 25 MG TAB PO SCH (09:48)
[2022-06-02] MEDS: FUROSEMIDE 40 MG TABLET PO SCH (09:48)
[2022-06-02] MEDS: FAMOTIDINE 20MG TAB PO SCH (09:48)
[2022-06-02] MEDS: BUSPIRONE HCL 5 MG TABLET PO SCH ×2 (09:48→20:47)
[2022-06-02] MEDS: CARVEDILOL 3.125 MG TABLET PO SCH ×2 (09:48→20:52)
[2022-06-02] MEDS: THIAMINE HCL 100 MG TABLET PO SCH (09:49)
[2022-06-02] MEDS: MAGNESIUM CHLORIDE 70 MG TABLET.SA PO SCH (09:49)
[2022-06-02] MEDS: HYDROCODONE/ACETAMINOPHEN 5/325 MG TAB PO PRN ×2 (09:52→17:29)
[2022-06-02] MEDS: GUAIFENESIN-CODEINE 5 ML SYRUP PO PRN ×2 (09:54→18:24)
[2022-06-02 11:39] LABS: INR 1.13 (0.85-1.15); PROTHROMBIN TIME 12.2 SEC (9.6-11.6)
[2022-06-02 11:41] LABS: PARTIAL THROMBOPLASTIN TIME 31.7 SEC (26.3-35.5)
[2022-06-02 12:52] LABS: GLUCOSE,BODY FLUID 141 mg/dL (1-40)
[2022-06-02] MEDS ORDERED: FUROSEMIDE 40 MG TABLET PO SCH (13:30)
[2022-06-02 14:06] LABS: APPEARANCE BODY FLUID SLIGHTLY CLOUDY (CLEAR); COLOR,BODY FLUID YELLOW (LT YELLOW); SPECIMENTYPE,BODY FLUID THORACENTESIS; TOTAL VOLUME,BODY FLUID 2000 mL
[2022-06-02 14:07] LABS: BODY FLUID RBC 419 /cu. mm.; BODY FLUID WBC 315 /cu. mm.
[2022-06-02 14:16] LABS: BF EOSINOPHIL 2 %; BF LYMPHOCYTE 25 %; BF MESOTHELIAL 46 %; BF MONOCYTE 4 %; BF OTHER CELLS 7
[2022-06-02] MEDS ORDERED: CARV3.1262 PO (20:37)
[2022-06-02] MEDS ORDERED: FINA5TAB41 PO (20:40)
[2022-06-02] MEDS ORDERED: FAMO-136 PO (20:42)
[2022-06-02] MEDS ORDERED: MAGN64TA7 PO (20:43)
[2022-06-02] MEDS: TAMSULOSIN HCL 0.4 MG CAP.ER.24H PO SCH (20:47)
[2022-06-02] MEDS: MIRTAZAPINE 15 MG TABLET PO SCH (20:47)
[2022-06-02] MEDS: FINASTERIDE 5 MG TABLET PO SCH (20:47)
[2022-06-02] MEDS ORDERED: SPIR25TA6 PO (20:48)
[2022-06-02] MEDS ORDERED: GUAI5SYR4 PO (20:51)
[2022-06-02] MEDS: ATORVASTATIN 40 MG TABLET PO SCH (20:51)
[2022-06-02] MEDS: HYDROXYZINE 25 MG TABLET PO SCH (21:13)
[2022-06-09] MEDS ORDERED: [UNRECOGNIZED DRUG - OTHER] PO (03:44)
== END 2022-06-03 00:39 | DRG 291 ==
LOC: EDH 17:36 → EDHIP 20:19 → 2DH 05-29 00:08 → 3BH 06-02 00:03
PROVIDERS: ADMIT Internal Medicine; ATTEND Internal Medicine
PROC: 0W993ZZ Drainage of Right Pleural Cavity, Percutaneous Approach (ICD-10-PCS; principal; 2022-06-02)
DX: I13.0 Hypertensive heart and chronic kidney disease with heart failure and stage 1 through stage 4 chronic kidney disease, or unspecified chronic kidney disease (principal); I50.23 Acute on chronic systolic (congestive) heart failure; J18.9 Pneumonia, unspecified organism; L03.115 Cellulitis of right lower limb; N17.9 Acute kidney failure, unspecified; L03.116 Cellulitis of left lower limb; J91.8 Pleural effusion in other conditions classified elsewhere; N18.9 Chronic kidney disease, unspecified; D64.9 Anemia, unspecified; E11.22 Type 2 diabetes mellitus with diabetic chronic kidney disease; Z20.822 Contact with and (suspected) exposure to COVID-19; Z82.0 Family history of epilepsy and other diseases of the nervous system; I25.5 Ischemic cardiomyopathy; I25.10 Atherosclerotic heart disease of native coronary artery without angina pectoris; G47.00 Insomnia, unspecified; R29.6 Repeated falls; Z82.3 Family history of stroke; Z82.49 Family history of ischemic heart disease and other diseases of the circulatory system; E78.00 Pure hypercholesterolemia, unspecified; J44.9 Chronic obstructive pulmonary disease, unspecified; Z79.899 Other long term (current) drug therapy; Z83.3 Family history of diabetes mellitus; Z95.810 Presence of automatic (implantable) cardiac defibrillator; Z87.891 Personal history of nicotine dependence
CPT/HCPCS: 32555; 36415; 70450; 71045; 71046; 72125; 80048; 80053; 80202; 81003; 82042; 82728; 82746; 82945; 82948; 83036; 83540; 83550; 83605; 83615; 83690; 83735; 83880; 83986; 84100; 84145; 84157; 84443; 84484; 85025; 85045; 85610; 85730; 86140; 87040; 87070; 87071; 87076; 87205; 87635; 87804; 89051; 93005; 93306; 93356; 97039; C1729; C9803; G0378; J0692; J1644; J1815; J1940; J2060; J2405; J3370; J3475

== ENCOUNTER 2022-06-07 16:46 | Emergency (ER) | payer OTHER ==
[~2022-06-07 16:46] MED LIST changes: +ACET325T51 PO; -ATOR40TA69 PO; +ATOR40TA71 PO; +BACL10TA PO; +BALS60OI TP; +BENZ200C53 PO; -BUSP15TA3 PO; +BUSP5TAB3 PO; +CARB1DRO40 OP; +CARV3.1262 PO; -CARV6.25 PO; +CHOL100046 PO; -CHOL1CRY2 MC; -CLOP75TA14 PO; +CYAN500T46 PO; -CYAN5POW MC; -D-ME118S47 PO; +FAMO-136 PO; +FERR-72 PO; +FLUT1BLS15 IH; +FURO20I IM; +FURO40TA7 PO; +GUAI5SYR4 PO; +HYDR-3422 PO; -HYDR-4153 PO; -INSLAN SQ; +INSU100V52 SQ; -IPRA3AMP24 IH; +LOSA25TA41 PO; +MAGN64TA7 PO; -MIRT-72 PO; +MIRT7.5T11 PO; -OMEP40CA21 PO; +PETR113O TP; -POTA-202 PO; +SPIR25TA6 PO; -SYMB8060 IH; -THIA100T78 PO; +THIA500T3 PO; -TRAZ-185 PO
[2022-06-07 17:09] LABS: BASOPHILS % (AUTO) 0.5 % (0.0-5.0); EOSINOPHILS % (AUTO) 4.4 % (0.0-8.0); HEMATOCRIT 33.7 % (42-54); LYMPHOCYTES % (AUTO) 11.4 % (21.0-51.0); MEAN CORPUSCULAR HEMOGLOBIN 28.6 pg (27.0-33.0); MEAN CORPUSCULAR HGB CONC 31.2 g/dL (32.0-36.0); MEAN CORPUSCULAR VOLUME 91.8 fL (79-99); MONOCYTES % (AUTO) 9.7 % (3.0-13.0); NEUTROPHILS % (AUTO) 73.8 % (40.0-77.0); PLATELET COUNT (AUTO) 233 K/uL (130-400); RED BLOOD CELL COUNT(AUTO) 3.67 MIL/uL (4.50-6.20); WHITE BLOOD COUNT (AUTO) 5.9 K/uL (4.8-10.8)
[2022-06-07 17:27] LABS: CREATININE 2.1 mg/dL (0.5-1.5); POTASSIUM 4.8 mmol/L (3.5-5.1)
[2022-06-07 17:32] LABS: ALBUMIN 2.3 g/dL (3.5-5.0); TOTAL PROTEIN, SERUM 6.3 g/dL (6.0-8.3)
[2022-06-07 17:47] LABS: B-TYPE NATRIURETIC PEPTIDE 1880 pg/mL (0-100)
[2022-06-07] MEDS ORDERED: FUROSEMIDE 40MG VIAL IV ONE ×2 (19:30→21:00)
[2022-06-07] MEDS ORDERED: IPRATROPIUM/ALBUTEROL SULFATE 3 ML SOLUTION IH ONE (19:30)
[2022-06-07 19:48] VITALS: BP 94/56
[2022-06-07 20:00] LABS: ABG HCO3 26.5 mmol/L (21.0-28.0); ABG OXYGEN SATURATION 97.1 % (95.0-99.0); ABG PCO2 46 mmHg (35-48)
[2022-06-09] MEDS ORDERED: [UNRECOGNIZED DRUG - OTHER] PO (03:44)
== END 2022-06-08 01:10 | disposition home or self-care (01) ==
LOC: EDH 16:46
DX: I11.0 Hypertensive heart disease with heart failure (principal); I50.9 Heart failure, unspecified; E11.9 Type 2 diabetes mellitus without complications; E78.00 Pure hypercholesterolemia, unspecified; I25.10 Atherosclerotic heart disease of native coronary artery without angina pectoris; Z79.899 Other long term (current) drug therapy
CPT/HCPCS: 99285; 96374; 71045; 82947; 84484; 80053; 82803; 83880; 85025; 83605; 36415; 93005; 36600; 94640; 82435; 84132; 84295; 85018; J1940

== ENCOUNTER → 2022-12-20 | Outpatient (CLI) | payer OTHER ==
[~2022-12-20] MED LIST changes: -ACET325T51 PO; -ATOR40TA71 PO; -BACL10TA PO; -BALS60OI TP; -BENZ200C53 PO; -BUSP5TAB3 PO; -CARB1DRO40 OP; -CARV3.1262 PO; -CHOL100046 PO; -CYAN500T46 PO; -FAMO-136 PO; -FERR-72 PO; -FINA5TAB41 PO; -FLUT1BLS15 IH; -FOLI1 PO; -FURO20I IM; -FURO40TA7 PO; -GUAI5SYR4 PO; -HYDR-3422 PO; -INSU100V52 SQ; -ISOS30TA92 PO; -LOSA25TA41 PO; -MAGN64TA7 PO; -MIRT7.5T11 PO; -PETR113O TP; +REGADENOSON 0.4 MG/5 ML PF SYG IVP ONE; -SPIR25TA6 PO; -TAMS-1 PO; -THIA500T3 PO
== END | disposition home or self-care (01) ==
LOC: SHCH 08:38
PROVIDERS: ATTEND Internal Medicine Cardiovascular Disease
DX: R94.39 Abnormal result of other cardiovascular function study (principal); I25.10 Atherosclerotic heart disease of native coronary artery without angina pectoris; Z95.0 Presence of cardiac pacemaker
CPT/HCPCS: 78452; 96374; 93017; J2785; A9500 ×2

== ENCOUNTER 2023-01-06 21:21 | Observation (INO) | payer OTHER ==
[~2023-01-06] VITALS: Ht 172.7 cm; Wt 83.5 kg
[2023-01-06 23:18] LABS: BASOPHILS % (AUTO) 0.6 % (0.0-5.0); EOSINOPHILS % (AUTO) 1.5 % (0.0-8.0); HEMATOCRIT 39.4 % (42-54); LYMPHOCYTES % (AUTO) 20.5 % (21.0-51.0); MEAN CORPUSCULAR HEMOGLOBIN 28.6 pg (27.0-33.0); MEAN CORPUSCULAR VOLUME 89.5 fL (79-99); MONOCYTES % (AUTO) 12.7 % (3.0-13.0); NEUTROPHILS % (AUTO) 64.4 % (40.0-77.0); PLATELET COUNT (AUTO) 189 K/uL (130-400); RED CELL DISTRIBUTION WIDTH 15.8 % (11.0-15.5); WHITE BLOOD COUNT (AUTO) 6.7 K/uL (4.8-10.8)
[2023-01-06 23:35] LABS: POTASSIUM 4.7 mmol/L (3.5-5.1)
[2023-01-06 23:39] LABS: ALBUMIN 3.5 g/dL (3.5-5.0); CREATININE 2.2 mg/dL (0.5-1.5); TOTAL PROTEIN, SERUM 8.1 g/dL (6.0-8.3)
[2023-01-07 00:07] LABS: INR 1.1 (0.85-1.15); PROTHROMBIN TIME 11.9 SEC (9.6-11.6)
[2023-01-07 00:08] LABS: PARTIAL THROMBOPLASTIN TIME 29.4 SEC (26.3-35.5)
[2023-01-07] MEDS ORDERED: ONDANSETRON 4MG INJ IV PRN (01:30)
[2023-01-07] MEDS ORDERED: LACTULOSE 20 GM/30 ML UDCUP PO PRN (01:30)
[2023-01-07] MEDS ORDERED: DULO20CA18 PO (02:46)
[2023-01-07] MEDS ORDERED: MELA1TAB28 PO (02:46)
[2023-01-07] MEDS ORDERED: ALBUHFA IH ×2 (02:46)
[2023-01-07] MEDS ORDERED: MAG10ORA PO (02:46)
[2023-01-07] MEDS ORDERED: EMPA10TA PO (02:46)
[2023-01-07] MEDS ORDERED: BACL5TAB PO (02:46)
[2023-01-07] MEDS ORDERED: GUAI100S13 PO (02:46)
[2023-01-07] MEDS ORDERED: LACT10SO9 PO (02:46)
[2023-01-07] MEDS ORDERED: MAGN400T7 PO (02:46)
[2023-01-07] MEDS ORDERED: DOCU100C33 PO (02:46)
[2023-01-07] MEDS ORDERED: FURO40TA5 PO (02:46)
[2023-01-07] MEDS ORDERED: CARV3.12 PO (02:46)
[2023-01-07] MEDS ORDERED: HYDR-3422 PO (02:46)
[2023-01-07] MEDS ORDERED: TAMS-1 PO (02:46)
[2023-01-07] MEDS ORDERED: DICL20GE TP (02:46)
[2023-01-07] MEDS ORDERED: ACET325T51 PO (02:46)
[2023-01-07] MEDS ORDERED: FAMO40TA7 PO (02:46)
[2023-01-07] MEDS ORDERED: INSU100I43 SQ (02:46)
[2023-01-07] MEDS ORDERED: SPIR25TA6 PO (02:46)
[2023-01-07 05:00] VITALS: BP 108/68
[2023-01-07] MEDS: INSULIN HUMULIN R 100 UNIT/ML 3ML SQ SCH ×2 (07:30→11:43)
[2023-01-07 08:00] VITALS: BP 142/78
[2023-01-07] MEDS ORDERED: CARVEDILOL 3.125 MG TABLET PO SCH (09:00)
[2023-01-07] MEDS ORDERED: FAMOTIDINE 20MG TAB PO SCH (09:00)
[2023-01-07] MEDS ORDERED: DOCUSATE SODIUM 100 MG CAP PO SCH (09:00)
[2023-01-07 09:17] LABS: MEAN CORPUSCULAR HEMOGLOBIN 28.5 pg (27.0-33.0); MEAN CORPUSCULAR HGB CONC 31.3 g/dL (32.0-36.0); MEAN CORPUSCULAR VOLUME 91.1 fL (79-99); RED BLOOD CELL COUNT(AUTO) 4.28 MIL/uL (4.50-6.20); RED CELL DISTRIBUTION WIDTH 15.7 % (11.0-15.5); WHITE BLOOD COUNT (AUTO) 5.7 K/uL (4.8-10.8)
[2023-01-07 09:36] LABS: ALBUMIN 3.4 g/dL (3.5-5.0); CREATININE 2.3 mg/dL (0.5-1.5); POTASSIUM 4.9 mmol/L (3.5-5.1); TOTAL PROTEIN, SERUM 7.8 g/dL (6.0-8.3)
[2023-01-07] MEDS ORDERED: HYDROXYZINE 25 MG TABLET ONE (11:05)
[2023-01-07 11:52] VITALS: BP 120/81
[2023-01-07] MEDS ORDERED: HYDROXYZINE 25 MG TABLET PO SCH (21:00)
[2023-01-07] MEDS ORDERED: TAMSULOSIN HCL 0.4 MG CAP.ER.24H PO SCH (21:00)
[2023-01-07] MEDS ORDERED: **HM**DULOXETINE 20MG PO SCH (21:00)
== END 2023-01-07 15:30 ==
LOC: EDH 21:21 → INTOOBSV 01-07 01:26 → EDHIP 01-07 01:26 → 3CH 01-07 05:00
PROVIDERS: ADMIT Hospitalist; ATTEND Hospitalist
DX: J90 Pleural effusion, not elsewhere classified (principal); I50.22 Chronic systolic (congestive) heart failure; K74.60 Unspecified cirrhosis of liver; R18.8 Other ascites; N17.9 Acute kidney failure, unspecified; N18.9 Chronic kidney disease, unspecified; E78.5 Hyperlipidemia, unspecified; I13.0 Hypertensive heart and chronic kidney disease with heart failure and stage 1 through stage 4 chronic kidney disease, or unspecified chronic kidney disease; E11.22 Type 2 diabetes mellitus with diabetic chronic kidney disease; N40.0 Benign prostatic hyperplasia without lower urinary tract symptoms; J44.9 Chronic obstructive pulmonary disease, unspecified; E78.00 Pure hypercholesterolemia, unspecified; F41.9 Anxiety disorder, unspecified; I46.9 Cardiac arrest, cause unspecified; I49.49 Other premature depolarization; Z87.891 Personal history of nicotine dependence; Z95.810 Presence of automatic (implantable) cardiac defibrillator; Z79.899 Other long term (current) drug therapy
CPT/HCPCS: 83735; 80053 ×2; 83690; 85025; 85610; 85730; 36415 ×2; 71045; 93005; 96372; 99285; 84484; 83880; 82140 ×2; 85027; 82948 ×2; 76705; G0378 ×2